=== PATIENT | female | born 1960 | race Caucasian/White ===

== ENCOUNTER → 2017-09-23 | Outpatient (CLI) | payer OTHER ==
[~2017-09-23] MED LIST: ADV100/50 INH; ADVAIR; ALB6.7R INH; AZI250 PO; COM14R INH; DOXY25TA36 PO; DUONEB INH; FES4PT PO; HCTZ25 PO; HYDR-2966 PO; IPRA3AMP21 IH; IPRA4AER IH; LEVO750T25 PO; LEVO750T44 PO; MOX400 PO; NO ROUTINE MEDS; OXYC-865 PO; PHEN200T32 PO; PRE10 PO; PRE20; PRE20 PO; SULF-198 PO; VAR05PT PO; VARE1TAB4 PO; nebulizer
--- NOTE | 2017-09-23 14:42 | RADIOLOGY IMAGING REPORT ---
FACILITY: [facility] [place] PATIENT NAME: Chen Del Real : 1960 MR: [id number] V: [id number] EXAM DATE: ORDERING PHYSICIAN: KATRINA ROMERO TECHNOLOGIST: Location: [facility] - [place] Patient: Chen Del Real : 1960 Visit/Account:[id number] Date of Sevice: 09/23/2017 Exam type: CHEST PA AND LAT History: L rib pain, fall on 09/19/17 Comparison: March 15, 2011. Findings: There is blunting of both costophrenic angles, left greater than right. This is a new finding when c ompared the prior study and may be secondary to small pleural effusions. There are multiple fracture s of the inferior lateral left ribs. Small amount of patchy airspace consolidation in the left lung base may be secondary to atelectasis, contusion or developing infiltrate. The cardiac silhouette is normal in size. IMPRESSION: 1. There are multiple fractures through the inferior lateral left ribs. Blunting of both costophren ic angles, left greater than right suspicious for pleural effusions. There is also patchy airspace c onsolidation in the left lung base consistent with atelectasis, contusion or infiltrate. Report Dictated By: Kristi Vance MD at 09/23/2017 2:26 PM Report E-Signed By: Kristi Vance MD at 09/23/2017 2:38 PM WSN:[email or web address]
--- NOTE | 2017-09-23 14:49 | RADIOLOGY IMAGING REPORT ---
FACILITY: [facility] PATIENT NAME: Chen Del Real : 1960 MR: [id number] V: [id number] EXAM DATE: ORDERING PHYSICIAN: KATRINA ROMERO TECHNOLOGIST: [place] [facility] [place] Chen Del [place] : 1960 Visit/Account:[id number] Date of Sevice: 09/23/2017 Exam type: RIBS LEFT History: L rib pain, fall on 09/19/17 Comparison: Two view chest performed today. Findings: There are several mildly displaced fractures through the anterolateral aspect of the lower left ribs. There is blunting of the left costophrenic angle likely related to small left pleural effusion. Sm all amount of airspace consolidation left lung base consistent with contusion infiltrate or atelectas is. IMPRESSION: 1. There several mildly displaced fractures through the anterolateral aspect of the lower left ribs Small left pleural effusion and left basilar airspace consolidation Report Dictated By: Kristi Vance MD at 09/23/2017 2:38 PM Report E-Signed By: Kristi Vance MD at 09/23/2017 2:43 PM WSN:[email or web address]
== END ==
LOC: RAD 13:47
PROVIDERS: ATTEND Nurse Practitioner Primary Care
DX: S22.42XA Multiple fractures of ribs, left side, initial encounter for closed fracture (principal); R91.8 Other nonspecific abnormal finding of lung field; J90 Pleural effusion, not elsewhere classified
CPT/HCPCS: 71046; 71100

== ENCOUNTER → 2017-09-30 | Outpatient (CLI) | payer OTHER ==
--- NOTE | 2017-09-30 10:51 | RADIOLOGY IMAGING REPORT ---
FACILITY: [facility] PATIENT NAME: Chen Del Real : 1960 MR: [id number] V: [id number] EXAM DATE: ORDERING PHYSICIAN: KATRINA ROMERO TECHNOLOGIST: Location: [facility] - [place] Patient: Chen Del Real : 1960 Visit/Account:[id number] Date of Sevice: 09/30/2017 EXAMINATION: Chest radiographs 2 views HISTORY: Rib fractures. Follow up left lung infiltrate. COMPARISON: Chest and left rib radiographs from 09/23/2017. FINDINGS: PA and lateral views of the chest are submitted. Lines/tubes: None. Lungs/pleura: Small left pleural effusion and basilar atelectasis has nearly resolved. Right lung i s clear. Heart: Negative. Mediastinum: Negative. Bony structures/body wall: There is a mildly displaced fracture of the left 10th lateral rib without callus. Fractures of the left 7th through 9th lateral ribs are not as well-visualized as on the trang or rib radiographs. Mild rightward curvature at the thoracolumbar junction. IMPRESSION: 1. Small left pleural effusion and basilar atelectasis are nearly resolved. 2. Mildly displaced fracture of the left 10th lateral rib is unchanged. Fractures of the left 7th t hrough 9th lateral ribs are not visualized on this exam. Report Dictated By: Emilia Tapia MD at 09/30/2017 10:42 AM Report E-Signed By: Emilia Tapia MD at 09/30/2017 10:46 AM WSN:[email or web address]
== END ==
LOC: RAD 09:29
PROVIDERS: ATTEND Nurse Practitioner Primary Care
DX: J90 Pleural effusion, not elsewhere classified (principal); S22.39XA Fracture of one rib, unspecified side, initial encounter for closed fracture
CPT/HCPCS: 71046

== ENCOUNTER 2018-04-22 00:52 | Day surgery (SDC) | payer OTHER ==
[~2018-04-22] VITALS: Ht 162.6 cm; Wt 56.7 kg
[~2018-04-22 00:52] MED LIST changes: +BUPR-156 PO; +CELECOXIB 200 MG CAP PO ONE; +FAMOTIDINE 20 MG TAB PO ONE; +IPRA3AMP10 IH; -IPRA3AMP21 IH; +LIDOCAINE/SOD BICARB 8.4% SYR ID ONE; +MIDAZOLAM 2 MG/2 ML VIAL IVP PRN; +NORMOSOL R SOLN(*) 1000 ML BAG 1,000 ML IV PRN; +ceFAZolin(*) 1 GM VIAL 1 GM in NS(*) 0.9% 100 ML ADDVANT BAG 100 ML IV ONE
[2018-04-22] MEDS ORDERED: ROPIVACAINE 0.2% 20 ML VIAL ONE (06:32)
[2018-04-22 06:35] VITALS: BP 136/95
[2018-04-22] MEDS ORDERED: FAMOTIDINE 20 MG TAB PO ONE (07:15)
[2018-04-22] MEDS ORDERED: NORMOSOL R SOLN(*) 1000 ML BAG 1,000 ML IV PRN (07:15)
[2018-04-22] MEDS ORDERED: CELECOXIB 200 MG CAP PO ONE (07:15)
[2018-04-22] MEDS ORDERED: MIDAZOLAM 2 MG/2 ML VIAL IVP PRN (07:15)
[2018-04-22] MEDS ORDERED: ceFAZolin(*) 1 GM VIAL 1 GM in NS(*) 0.9% 100 ML ADDVANT BAG 100 ML IVPB ONE (07:15)
[2018-04-22] MEDS ORDERED: LIDOCAINE/SOD BICARB 8.4% SYR ID ONE (07:15)
[2018-04-22] MEDS ORDERED: DEXAMETHASONE SOD 4 MG/ML VIAL ONE (07:17)
[2018-04-22] MEDS ORDERED: LIDOCAINE MPF 1% 5 ML VIAL ONE (07:17)
[2018-04-22] MEDS ORDERED: METOCLOPRAMIDE 10 MG/2 ML SDV ONE (07:17)
[2018-04-22] MEDS ORDERED: PROPOFOL EMUL(*) 10MG/ML 20 ML 20 ML ONE (07:17)
[2018-04-22] MEDS ORDERED: ONDANSETRON 4 MG/2 ML VIAL ONE (07:17)
[2018-04-22] MEDS ORDERED: fentaNYL CITR 100 MCG/2 ML AMP ONE ×2 (07:19→10:13)
[2018-04-22] MEDS ORDERED: HYDR-653 PO (10:21)
[2018-04-22] MEDS ORDERED: ACETAMINOPHEN(*)1000 MG/100 ML 100 ML IVPB ONE (10:30)
[2018-04-22] MEDS ORDERED: ALBUTEROL/IPRATROPIUM 3 ML NEB ONE (10:41)
[2018-04-22] MEDS ORDERED: ALBUTEROL/IPRATROPIUM 3 ML NEB NEB ONE (10:45)
--- NOTE | 2018-04-22 10:47 | OPERATIVE REPORT 1 ---
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 PROCEDURE PERFORMED Left thumb basal joint arthroplasty with suspensionplasty of the FCR and De Quervain's release. FINDINGS The patient had a significant arthritis associated with the basal joint and some irritation associated with the scaphoid but no other obvious abnormalities. ESTIMATED BLOOD LOSS Minimal. DRAINS None. COMPLICATIONS None. IMPLANTS USED JuggerKnot anchor with a 2-0 suture times 2 that were tied into the FCR. SPECIMENS None. TOURNIQUET TIME About 72 minutes. INDICATIONS AND HISTORY This patient is a 57-year-old female that presented to my clinic for evaluation of left thumb pain and irritation going on for some time. She continued to have pain and irritation despite conservative management and so therefore we talked to her about the implications of this as well as treatment options. She said she wanted to go ahead with a basal joint arthroplasty since she failed all conservative managements. We talked about how it may not relieve all of her pain and she may continue to have some irritation and problems associated with it retirement. She said she understood this and wanted to go ahead with it. The risk and benefits were discussed with the patient and informed consent was obtained at the last clinic visit. DESCRIPTION OF PROCEDURE As the patient was brought into the operating room, she and the procedure both verified. She was placed supine on the operating table and induced and intubated by anesthesia. The left upper extremity was then prepped and draped in the usual fashion. A timeout was observed verifying the correct patient and procedure. The curvilinear incision was made over the over the base of the thumb and then towards the flexor carpi radialis. It was taken through the skin and subcutaneous tissue and identified the radial sensory nerve and then moved it to the radial side and then was able to go down to the first dorsal compartment then released the first dorsal compartment without any major difficulty freeing up the tendons. Once I did this, I was able to move the tendons to the radial side also and then make an incision down over the base of the metacarpal onto the trapezium. Once I was able to get around the trapezium, I then was able to dissect and moved the capsule off the trapezium and then cut it in two pieces using a osteotome with a gentle cut through this area. Once I was able to this, I was then able to remove the proximal portion without any major difficulty as it had few adhesions and then I removed the distal portion in a piecemeal fashion as it did have a lot of adhesions over this area. I made sure to leave the flexor celi radialis insertion intact on this area. I also inspected the STT joint. There was a small crack within the scaphoid from the removal of the trapezium but no other signs of displacement associated with this and so therefore I then was able to irrigate with copious amounts of saline and then drilled two anchors, where I put 2 JuggerKnot anchors with 2 loaded anchors into the base of the metacarpal. There was a small cyst in this area, so I had to put one inferior and one to the radial side, but these had good fixation associated with them to tie in the FCR. I then turned attention to the wrist crease where I was able to free up the FCR in this area and then made a small incision proximally in order to cut the tendon itself down to the middle portion of the forearm. Once I got to the myotendinous junction, I was able to cut the tendon there without any major difficulty and then pulled it through the wrist crease and then pulled it into the area vacated by the trapezium. I then put a Prolene stitch in accordion type fashion up and down this stitch and then tied in the Orthocord stitches in this area also into the base of the FCR. I then accordioned the FCR down and then tied it in place. I then tied the stitches associated with the anchors to the metacarpal and then everything was held in place and had good suspension associated with it and so this was accepted. I then irrigated again and then closed the capsule using the Prolene first and then the Orthocord sutures to tie these in. Once I was able to tie these in, everything closed the capsule well and she had suspension. There was no need for pinning of the thumb. I then irrigated again, and then closed the skin using a 3-0 Vicryl in an interrupted subcuticular fashion. This was then followed by a subcutaneous 4-0 Monocryl with the ends buried and then a 3-0 Vicryl in the proximal aspect. The thumb was anesthetized with Ropivacaine and then dressed with Steri-Strips, gauze 4x4's and a soft dressing and then she was put in a thumb spica splint. The tourniquet was let down after just over 70 minutes and the patient was awakened and extubated and transfused the PACU in stable condition. JP
[2018-04-22] MEDS ORDERED: oxyCODONE HCL 5 MG CAP ONE (11:04)
[2018-04-22 11:15] VITALS: BP 132/81
[2018-04-22 11:30] VITALS: BP 135/75
[2018-04-22 11:45] VITALS: BP 132/75
[2018-04-22 12:45] VITALS: BP 143/85
[2018-04-22 12:55] VITALS: BP 143/85
[2018-04-22] MEDS ORDERED: APAP/HYDROCODONE 325/5 TAB ONE (15:27)
== END 2018-04-22 11:15 | disposition home or self-care (01) ==
LOC: OR 00:52
PROVIDERS: ATTEND Orthopaedic Surgery
DX: M18.12 Unilateral primary osteoarthritis of first carpometacarpal joint, left hand (principal); M65.4 Radial styloid tenosynovitis [de Quervain]; G47.30 Sleep apnea, unspecified
CPT/HCPCS: 25000; 25447; 94640; J0131; J1100; J2001; J2405; J2704; J2765; J2795; J3010; J7620; 96374; 96375; 99284; A4565; C1713

== ENCOUNTER → 2018-04-24 | Outpatient (CLI) | payer OTHER ==
[~2018-04-24] MED LIST changes: -CELECOXIB 200 MG CAP PO ONE; -FAMOTIDINE 20 MG TAB PO ONE; +HYDR-653 PO; -LIDOCAINE/SOD BICARB 8.4% SYR ID ONE; -MIDAZOLAM 2 MG/2 ML VIAL IVP PRN; -NORMOSOL R SOLN(*) 1000 ML BAG 1,000 ML IV PRN; -ceFAZolin(*) 1 GM VIAL 1 GM in NS(*) 0.9% 100 ML ADDVANT BAG 100 ML IV ONE
--- NOTE | 2018-04-24 12:59 | RADIOLOGY IMAGING REPORT ---
FACILITY: [facility] - [place] PATIENT NAME: Chen Del Real : 1960 MR: [id number] V: [id number] EXAM DATE: ORDERING PHYSICIAN: KRISHNA SLATER TECHNOLOGIST: Location: [facility] Patient: Chen Del Real : 1960 Visit/Account:[id number] Date of Sevice: 04/24/2018 US SINGLE ORGAN HISTORY: Right upper quadrant abdomen pain x2 years, a prostatectomy for endometriosis COMPARISON: None. FINDINGS: Multiple images of the right side abdomen wall were obtained with and without a Valsalva maneuver. T here was no demonstration of a ventral hernia. There was a small hypoechoic region in the anterior a bdominal musculature just to the right of midline in the upper abdomen measuring 1 x 0.7 x 1.7 cm and one of the three reported areas of pain. This is nonspecific in nature IMPRESSION: No evidence of a ventral hernia Vague 1 x 0.7 x 1.7 cm area of decreased echogenicity along the upper anterior abdominal wall just to the right of midline in one of the three reported areas of pain. This is nonspecific in nature this could be related to old scarring if patient's symptoms persist however a CT of the abdomen is recomm ended for further evaluation Report Dictated By: Kristi Vance MD at 04/24/2018 12:50 PM Report E-Signed By: Kristi Vance MD at 04/24/2018 12:55 PM WSN:[email or web address]
--- NOTE | 2018-04-24 13:04 | RADIOLOGY IMAGING REPORT ---
FACILITY: [facility] PATIENT NAME: Chen Del Real : 1960 MR: [id number] V: [id number] EXAM DATE: ORDERING PHYSICIAN: KRISHNA SLATER TECHNOLOGIST: Location: [facility] - [place] Patient: Chen Del Real : 1960 Visit/Account:[id number] Date of Sevice: 04/24/2018 GALLBLADDER HISTORY: Right upper quadrant pain x2 years, a prostatectomy for endometriosis COMPARISON: None. FINDINGS: Gallbladder: There is a small amount of gallbladder sludge. There was a positive Hill sign by tech nologist notation. The gallbladder wall measures 3.6 mm in thickness. Liver: There is a heterogeneous echotexture to the liver although discrete mass is not demonstrated. There is no evidence of hepatomegaly Common duct: Mildly enlarged 2.5-7.7 mm diameter. Pancreas: Partially obscured by bowel, visualized aspects unremarkable. Right kidney: Right kidney appears unremarkable measuring 10.7 cm in length Upper abdominal aorta and IVC: Patent. Ascites: None visualized. IMPRESSION: There is a heterogeneous echotexture throughout the liver although discrete masses and hepatomegaly n ot demonstrated There is a small amount of gallbladder sludge and a positive Hill sign by technologist notation. C ommon bile duct is also mildly dilated at 7.7 mm. Depending upon the clinical findings hepatobiliary scan with CCK may be helpful for further evaluation to evaluate gallbladder function Report Dictated By: Kristi Vance MD at 04/24/2018 12:55 PM Report E-Signed By: Kristi Vance MD at 04/24/2018 12:58 PM WSN:[email or web address]
== END ==
LOC: US 01:14
PROVIDERS: ATTEND Internal Medicine
DX: R10.11 Right upper quadrant pain (principal)
CPT/HCPCS: 76705

== ENCOUNTER → 2018-05-23 | Outpatient (CLI) | payer OTHER ==
[~2018-05-23] MED LIST changes: +ALB18R IH; +SINCALIDE 5 MCG VIAL INJ ONE; +WATER FOR INJ,STERILE 20 ML 20 ML ONE
--- NOTE | 2018-05-23 12:14 | RADIOLOGY IMAGING REPORT ---
FACILITY: [facility] - [place] PATIENT NAME: Chen Del Real : 1960 MR: [id number] V: [id number] EXAM DATE: ORDERING PHYSICIAN: KRISHNA SLATER TECHNOLOGIST: Location: [facility] - [place] Patient: Chen Del Real : 1960 Visit/Account:[id number] Date of Sevice: 05/23/2018 NM HIDA SCAN HISTORY: Right upper quadrant pain TECHNIQUE: 5.6 mCi Tc99m Hepatolite was injected intravenously. Multiple sequential gamma camera alize ges of the abdomen were obtained for 33 minutes. At that time, Kinevac was injected intravenously and an additional 30 minutes of gamma camera imaging data was acquired. A computer-generated region of i nterest was placed around the gallbladder and time-activity curve for the gallbladder was derived. Th e gallbladder ejection fraction was calculated. COMPARISON: Doppler ultrasound April 24, 2018 FINDINGS: Liver uptake and excretion: Unremarkable. Time to appearance: Bile ducts: 6 minutes. Gallbladder: 8 minutes. Duodenum: 32 minutes. Duodenal-gastric reflux / extravasation: Large amount Post IV Kinevac: Normal and prompt contraction of the gallbladder. Patient symptoms: None reported Ejection fraction = 81%% (normal range >35%). IMPRESSION: Gallbladder ejection fraction of 81% Large amount of retrograde reflux was identified into the stomach Report Dictated By: Kristi Vance MD at 05/23/2018 12:00 PM Report E-Signed By: Kristi Vance MD at 05/23/2018 12:09 PM WSN:[email or web address]
== END ==
LOC: NUC 04:40
PROVIDERS: ATTEND Internal Medicine
DX: K21.9 Gastro-esophageal reflux disease without esophagitis (principal)
CPT/HCPCS: 78226; A9537; J2805

== ENCOUNTER → 2018-06-26 | Outpatient (CLI) | payer OTHER ==
[~2018-06-26] MED LIST changes: -SINCALIDE 5 MCG VIAL INJ ONE; -WATER FOR INJ,STERILE 20 ML 20 ML ONE
--- NOTE | 2018-07-07 18:04 | RADIOLOGY IMAGING REPORT ---
FACILITY: [facility] - [place] PATIENT NAME: ALIS WARD : [id number] MR: [id number] V: [id number] EXAM DATE: [id number] ORDERING PHYSICIAN: KRISHNA SLATER TECHNOLOGIST: Bernarda Perez PROCEDURE:BILATERAL DIGITAL SCREENING MAMMOGRAM WITH CAD ASSISTED INTERPRETATION & 3D TOMOSYNTHESIS COMPARISON:Prior mammograms INDICATIONS:screening FINDINGS: Scattered fibroglandular densities are present in both breasts. Benign appearing asymmetries and small nodularities are scattered in both breasts, essentially unchanged. RECOMMENDATIONS: ROUTINE MAMMOGRAM AND CLINICAL EVALUATION. IMPRESSION: BIRADS 2: Benign finding. Dictated by: Dariel Daniels M.D. on 06/27/2018 at 13:39 Transcribed by: KLAUDIA on 07/05/2018 at 12:15 Approved by: Kristi Vance M.D. on 07/07/2018 at 18:03 [facility]
== END ==
LOC: MAMO 00:45
PROVIDERS: ATTEND Internal Medicine
DX: Z12.31 Encounter for screening mammogram for malignant neoplasm of breast (principal)
CPT/HCPCS: 77063; 77067

== ENCOUNTER 2018-10-16 12:38 | Emergency (ER) | payer OTHER ==
[2018-10-16] MEDS ORDERED: ALBUTEROL/IPRATROPIUM 3 ML NEB NEB ONE ×2 (12:50→14:05)
[2018-10-16] MEDS ORDERED: methylPREDNIS SUCC 125 MG/2ML IVP ONE (12:50)
--- NOTE | 2018-10-16 12:53 | ER Report ---
History and Physical Time Seen By MD: 12:50 Hx. of Stated Complaint: started not feeling well yeaterday. slept in a camper last night, woke up very sob today. speaking in broken sentances, breathing through pursed lips HPI/ROS CHIEF COMPLAINT: Shortness of breath HISTORY OF PRESENT ILLNESS: 89 female long history of COPD a pack to pack and half a day smoker last time she smoked was yesterday comes emergency room today with worsening shortness of breath or productive cough patient's had her medications discontinued secondary to changing a physician so she's not had had her Combivent is normal she has no nebulizers at home she uses oxygen only at night and mostly lower altitude comes in today and she is notably hypoxic on arrival. Patient's denying chest pain abdominal pain nausea vomiting has some mild exertional dyspnea and orthopnea no PND with a productive cough REVIEW OF SYSTEMS: Respiratory: Cough shortness of breath Cardiovascular: No chest pain, no palpitations. Gastrointestinal: No vomiting, no abdominal pain. Musculoskeletal: No back pain. Remainder of the 14 system rev: Yes Allergies: Coded Allergies: No Known Drug Allergies (Unverified , 10/16/18) Home Meds Active Scripts Ipratropium/Albuterol Sulfate (COMBIVENT RESPIMAT INHAL SPRAY) 4 Gm Aer.w.adap, 1 PUFF IH QID, #1 CART 1 Refill Prov:JADE JACOB MD 09/23/18 Ipratropium/Albuterol Sulfate (IPRAT-ALBUT 0.5-3(2.5) MG/3 ML) 3 Ml Ampul.neb, 3 ML IH BID PRN for shortness of breath, #72 VIAL 0 Refills Prov:JADE JACOB MD 09/23/18 Albuterol Sulfate (VENTOLIN HFA) 18 Gm Inh, 1-2 PUFF IH Q4H PRN for WHEEZING, #1 BOTTLE 0 Refills Prov:JOE GARCIA APRN [employer]ER-C 05/16/18 Reported Medications Hydrocodone Bit/Acetaminophen (NORCO 5-325 TABLET) 1 Each Tablet, 1 EACH PO Q4H PRN for PAIN, #30 TAB 04/22/18 Fesoterodine Fumarate (TOVIAZ) 4 Mg Tabsr, 1 TAB PO PRN, TAB 07/04/16 Reviewed Nurses Notes: Yes Old Medical Records Reviewed: Yes Hx Smoking: Yes (1 PPD X 40YR) Smoking Status: Current: Every Day Smoker Exposure to Second Hand Smoke?: Yes (CHILDHOOD) Hx Substance Use Disorder: No Hx Alcohol Use: Yes Constitutional Vital Sign - Last 24 Hours 10/16/18 10/16/18 10/16/18 10/16/18 12:42 12:46 12:53 12:55 Temp 97.8 Pulse 103 88 Resp 22 18 B/P (MAP) 138/90 138/90 (106) Pulse Ox 76 94 O2 Delivery Room Air O2 Flow Rate 4.0 10/16/18 10/16/18 10/16/18 10/16/18 13:00 13:03 13:03 13:08 Pulse 89 88 Resp 18 19 B/P (MAP) 135/95 (108) Pulse Ox 94 96 O2 Delivery Nasal Cannula O2 Flow Rate 2.5 10/16/18 10/16/18 10/16/18 10/16/18 13:30 13:38 13:53 14:00 Pulse 98 88 Resp 10 13 B/P (MAP) 146/85 (105) 132/83 (99) Pulse Ox 90 91 10/16/18 10/16/18 14:20 14:20 Pulse 86 Resp 18 Pulse Ox 91 O2 Delivery Nasal Cannula O2 Flow Rate 2.0 Physical Exam General Appearance: The patient is alert, has no immediate need for airway protection and no current signs of toxicity. [ ] Eyes: Pupils equal and round no injection. Respiratory: Lungs and expiratory wheezes all lung west more prominent in the bases Cardiac: regular rate and rhythm [ ] Gastrointestinal: Abdomen is soft and non tender, no masses, bowel sounds normal. Musculoskeletal: Neck: Neck is supple and non tender. Extremities have full range of motion and are non tender. Skin: No rashes or lesions. [ ] DIFFERENTIAL DIAGNOSIS: After history and physical exam differential diagnosis was considered for COPD exacerbation CHF myocardial infarction bronchitis pneumonia Medical Decision Making Data Points Result Diagram: 10/16/18 1305 10/16/18 1305 Laboratory Hematology Test 10/16/18 13:03 10/16/18 13:05 Blood Gas Puncture Site Right radial Blood Gas Patient Temperature 97.8 DEGREES Arterial Blood pH 7.34 (7.35-7.45) Arterial Blood Partial Pressure CO2 46 mmHg (32-37) Arterial Blood Partial Pressure O2 84 mmHg (60-80) Arterial Blood HCO3 25 mmol/L (20-26) Arterial Blood Oxygen Saturation 96 % (92-100) Arterial Blood Base Excess -1.0 mmol/L Jerry Test Acceptable Oxygen Liters/Minute 37% Red Blood Count 4.57 M/uL (4.17-5.56) Mean Corpuscular Volume 94.4 fL (80.0-96.0) Mean Corpuscular Hemoglobin 31.8 pg (26.0-33.0) Mean Corpuscular Hemoglobin Concent 33.6 g/dL (32.0-36.0) Red Cell Distribution Width 13.3 % (11.5-14.5) Mean Platelet Volume 7.2 fL (7.2-11.1) Neutrophils (%) (Auto) 64.7 % (39.4-72.5) Lymphocytes (%) (Auto) 19.2 % (17.6-49.6) Monocytes (%) (Auto) 12.1 % (4.1-12.4) Eosinophils (%) (Auto) 3.3 % (0.4-6.7) Basophils (%) (Auto) 0.7 % (0.3-1.4) Nucleated RBC Relative Count (auto) 0.0 /100WBC Neutrophils # (Auto) 3.3 K/uL (2.0-7.4) Lymphocytes # (Auto) 1.0 K/uL (1.3-3.6) Monocytes # (Auto) 0.6 K/uL (0.3-1.0) Eosinophils # (Auto) 0.2 K/uL (0.0-0.5) Basophils # (Auto) 0.0 K/uL (0.0-0.1) Nucleated RBC Absolute Count (auto) 0.00 K/uL D-Dimer Quantitative (PE/DVT) 0.44 ug/ml (0-0.50) Sodium Level 138 mmol/L (137-145) Potassium Level 4.2 mmol/L (3.5-5.0) Chloride Level 103 mmol/L (98-107) Carbon Dioxide Level 26 mmol/L (22-31) Blood Urea Nitrogen 7 mg/dl (7-18) Creatinine 0.40 mg/dl (0.52-1.04) Glomerular Filtration Rate Calc > 60.0 Random Glucose 107 mg/dl (75-110) Calcium Level 9.4 mg/dl (8.4-10.2) Total Bilirubin 0.3 mg/dl (0.2-1.3) Aspartate Amino Transf (AST/SGOT) 42 U/L (0-35) Alanine Aminotransferase (ALT/SGPT) 49 U/L (0-56) Alkaline Phosphatase 98 U/L (0-126) Troponin I < 0.012 ng/ml B-Type Natriuretic Peptide 56 pg/ml (0-100) Total Protein 7.0 g/dl (6.3-8.2) Albumin 4.2 g/dl (3.5-5.0) Chemistry Test 10/16/18 13:03 10/16/18 13:05 Blood Gas Puncture Site Right radial Blood Gas Patient Temperature 97.8 DEGREES Arterial Blood pH 7.34 (7.35-7.45) Arterial Blood Partial Pressure CO2 46 mmHg (32-37) Arterial Blood Partial Pressure O2 84 mmHg (60-80) Arterial Blood HCO3 25 mmol/L (20-26) Arterial Blood Oxygen Saturation 96 % (92-100) Arterial Blood Base Excess -1.0 mmol/L Jerry Test Acceptable Oxygen Liters/Minute 37% White Blood Count 5.2 k/uL (4.5-11.0) Red Blood Count 4.57 M/uL (4.17-5.56) Hemoglobin 14.5 g/dL (12.0-16.0) Hematocrit 43.2 % (34.0-47.0) Mean Corpuscular Volume 94.4 fL (80.0-96.0) Mean Corpuscular Hemoglobin 31.8 pg (26.0-33.0) Mean Corpuscular Hemoglobin Concent 33.6 g/dL (32.0-36.0) Red Cell Distribution Width 13.3 % (11.5-14.5) Platelet Count 282 K/uL (150-450) Mean Platelet Volume 7.2 fL (7.2-11.1) Neutrophils (%) (Auto) 64.7 % (39.4-72.5) Lymphocytes (%) (Auto) 19.2 % (17.6-49.6) Monocytes (%) (Auto) 12.1 % (4.1-12.4) Eosinophils (%) (Auto) 3.3 % (0.4-6.7) Basophils (%) (Auto) 0.7 % (0.3-1.4) Nucleated RBC Relative Count (auto) 0.0 /100WBC Neutrophils # (Auto) 3.3 K/uL (2.0-7.4) Lymphocytes # (Auto) 1.0 K/uL (1.3-3.6) Monocytes # (Auto) 0.6 K/uL (0.3-1.0) Eosinophils # (Auto) 0.2 K/uL (0.0-0.5) Basophils # (Auto) 0.0 K/uL (0.0-0.1) Nucleated RBC Absolute Count (auto) 0.00 K/uL D-Dimer Quantitative (PE/DVT) 0.44 ug/ml (0-0.50) Glomerular Filtration Rate Calc > 60.0 Calcium Level 9.4 mg/dl (8.4-10.2) Total Bilirubin 0.3 mg/dl (0.2-1.3) Aspartate Amino Transf (AST/SGOT) 42 U/L (0-35) Alanine Aminotransferase (ALT/SGPT) 49 U/L (0-56) Alkaline Phosphatase 98 U/L (0-126) Troponin I < 0.012 ng/ml B-Type Natriuretic Peptide 56 pg/ml (0-100) Total Protein 7.0 g/dl (6.3-8.2) Albumin 4.2 g/dl (3.5-5.0) Coagulation Test 10/16/18 13:05 D-Dimer Quantitative (PE/DVT) 0.44 ug/ml ED Course/Re-evaluation ED Course 57-year-old female comes emergency Department today with complaint of shortness of breath as a long history of COPD C multiple COPD exacerbations has been out of her medications give her 2 breathing treatments she is doing significantly better. Chest x-ray is consistent with COPD exacerbation without obvious signs of infection based on labs including ABG was also well within her range. Patient feels significantly better we will start her on by mouth prednisone and have her follow up with primary care diagnosis COPD exacerbation and by smoking cessation Decision to Disposition Date: Oct 16, 2018 Decision to Disposition Time: 14:53 Depart Departure Latest Vital Signs Vital Signs Date Time Temp Pulse Resp B/P (MAP) Pulse Ox O2 Delivery O2 Flow Rate FiO2 10/16/18 14:20 86 18 10/16/18 14:20 91 Nasal Cannula 2.0 10/16/18 14:00 132/83 (99) 10/16/18 12:42 97.8 Impression: Primary Impression: COPD (chronic obstructive pulmonary disease) Condition: Improved Disposition: HOME OR SELF-CARE Referrals: KRISHNA SLATER MD (PCP) JADE JACOB MD 5 Days New Scripts Ipratropium/Albuterol Sulfate (COMBIVENT RESPIMAT INHAL SPRAY) 4 Gm Aer.w.adap 1 EACH IH QID for 30 Days, #1 Prov: SHIVANI LAUGHLIN MD 10/16/18 Prednisone (PREDNISONE) 20 Mg Tablet 60 MG PO QDAY, #12 0 Refills Prov: SHIVANI LAUGHLIN MD 10/16/18 Patient Instructions: COPD (Chronic Obstructive Pulmonary Disease) (DC) SHIVANI LAUGHLIN MD Oct 16, 2018 12:53
[2018-10-16 13:22] LABS: PLATELET COUNT, AUTOMATED 282 K/uL (150-450)
--- NOTE | 2018-10-16 14:15 | RADIOLOGY IMAGING REPORT ---
[facility] PATIENT NAME: Chen Del Real : 1960 MR: [id number] V: [id number] EXAM DATE: ORDERING PHYSICIAN: SHIVANI LAUGHLIN TECHNOLOGIST: Location: [facility] Patient: Chen Del Real : 1960 Visit/Account:[id number] Date of Sevice: 10/16/2018 Exam type: CHEST PA LAT History: sob Comparison: September 30, 2017. Findings: Multiple old left-sided rib fractures are again seen. There is no evidence of a pneumothorax or pneu momediastinum. The lungs are free of acute effusions, infiltrates or edema. There is a mild increas ed AP diameter the chest which can be seen with hyperinflation. Cardiac silhouette is normal in size IMPRESSION: 1. Mild hyperinflation of the lung west although no evidence of acute pulmonary consolidation Report Dictated By: Kristi Vance MD at 10/16/2018 2:09 PM Report E-Signed By: Kristi Vance MD at 10/16/2018 2:10 PM WSN:[email or web address]
[2018-10-16 14:30] VITALS: BP 136/86
--- NOTE | 2018-10-16 14:44 | EKG ---
FACILITY: [facility] PATIENT NAME: ALIS WARD : [id number] MR: [id number] V: [id number] EXAM DATE: ORDERING PHYSICIAN: SHIVANI LAUGHLIN TECHNOLOGIST: Test Reason : SOB Blood Pressure : / mmHG Vent. Rate : 089 BPM Atrial Rate : 089 BPM P-R Int : 114 ms QRS Dur : 066 ms QT Int : 390 ms P-R-T Axes : 061 091 074 degrees QTc Int : 474 ms Sinus rhythm No acute appearing findings No previous ECGs available Confirmed by KAT GENTILE ([id number]) on 10/16/2018 3:17:01 PM Referred By: Confirmed By:KAT GENTILE
[2018-10-16] MEDS ORDERED: PRED20TA6 PO (14:55)
[2018-10-16] MEDS ORDERED: IPRA4AER IH (14:55)
== END 2018-10-16 14:58 | disposition home or self-care (01) ==
LOC: ER 12:55
DX: J44.1 Chronic obstructive pulmonary disease with (acute) exacerbation (principal)
CPT/HCPCS: 36600; 71046; 82803; 83880; 84484; 85025; 85379; 93005; 94640; 96374; 99284; J2930; J7620; 82040; 82247; 82310; 82374; 82435; 82565; 82947; 84075; 84132; 84155; 84295; 84450; 84460; 84520

== ENCOUNTER → 2018-11-05 | Outpatient (CLI) | payer OTHER ==
[~2018-11-05] MED LIST changes: +PRED20TA6 PO; +UMEC1DIS INH
== END ==
LOC: RESP 00:24
PROVIDERS: ATTEND Emergency Medicine
DX: J44.9 Chronic obstructive pulmonary disease, unspecified (principal)
CPT/HCPCS: 94060; 94726; 94729

== ENCOUNTER → 2018-11-05 | Outpatient (CLI) | payer OTHER ==
--- NOTE | 2018-11-05 11:12 | RADIOLOGY IMAGING REPORT ---
FACILITY: [facility] PATIENT NAME: Chen Del Real : 1960 MR: [id number] V: [id number] EXAM DATE: ORDERING PHYSICIAN: JADE JACOB TECHNOLOGIST: Location: [facility] Patient: Chen Del Real : 1960 Visit/Account:[id number] Date of Sevice: 11/05/2018 DEXA Scan Clinical history: Postmenopausal, smoking history. Comparison: None available. LUMBAR SPINE: The bone mineral density (BMD) measured from L1-L4 correlates with a Z-score -0.8 and a T-score of -1 .8 which is osteopenia as defined by the World Health Organization. The corresponding risk of fractu re in the lumbar spine is 3-4 times increased compared with a young adult reference population. HIP: Bone mineral density (BMD) measured in the Left total hip region correlates with a Z-score -1.6 and a T-score of -2.4 which is osteopenia as defined by the World Health Organization. The corresponding risk of fracture in the hip is 4-6 times increased compared with a young adult reference population. T score left femoral neck -1.5 Bone mineral density (BMD) measured in the Femoral Neck region measures 0.833 g/cm2. Impression: 1. Lumbar spine: Osteopenia. 2. Left Hip: Osteopenia. 3. Femoral Neck: Bone Mineral Density is 0.833 g/cm2 The next DEXA scan of this patient should include the following sites: L1-L4 and the left hip. FRAX? WHO Fracture Risk Assessment Tool link: <http://www.shef.ac.uk/FRAX/tool.jsp?locationValue=9> PLEASE NOTE: 1) The World Health Organization defines low BMD as follows: T-score Normal > -1 Osteopenia < -1 and > -2.5 Osteoporosis < -2.5 without fractures Established osteoporosis < -2.5 with fractures 2) In general, you may wish to consider: Diagnosis Treatment Follow-up DEXA Normal BMD Prevention 2-3 years Osteopenia Prevention/therapy 1-2 years Osteoporosis Therapy Yearly 3) Fracture risk estimated from the T-score is more accurate for vertebral fractures (often spontane ous) than for hip fractures. Report Dictated By: Kristi Vance MD at 11/05/2018 11:04 AM Report E-Signed By: Kristi Vance MD at 11/05/2018 11:05 AM WSN:[email or web address]
== END ==
LOC: RAD 01:33
PROVIDERS: ATTEND Emergency Medicine
DX: M85.89 Other specified disorders of bone density and structure, multiple sites (principal)
CPT/HCPCS: 77080